=== PATIENT | male | born 1995 | race Two or more races ===

== ENCOUNTER 2023-01-13 15:06 | Emergency (ER) | payer OTHER ==
[~2023-01-13] VITALS: Ht 167.6 cm; Wt 74.8 kg
[2023-01-13] MEDS ORDERED: AMOX-CLAV 875-1 EACH PO (16:56)
== END 2023-01-13 17:03 | disposition home or self-care (01) ==
LOC: ER 15:06
DX: S61.011A Laceration without foreign body of right thumb without damage to nail, initial encounter (principal); W25.XXXA Contact with sharp glass, initial encounter; X58.XXXA Exposure to other specified factors, initial encounter; Y93.89 Activity, other specified; Y92.89 Other specified places as the place of occurrence of the external cause; Y99.9 Unspecified external cause status